=== PATIENT | male | born 1955 | race Caucasian/White ===

== ENCOUNTER 2018-05-05 08:44 | Emergency (ER) | payer OTHER, BC ==
[2018-05-05] MEDS: KETOROLAC 15 MG INJ IV (09:31)
[2018-05-05] MEDS: SOD CHLORIDE 0.9% 1,000 ML IV (09:31)
[2018-05-05 09:43] LABS: ADD MAN DIFF? NO
[2018-05-05 09:48] LABS: BASOPHILS % 0.5 % (0.0-2.0); HEMATOCRIT 42.7 % (42.0-52.0); HEMOGLOBIN 14.9 g/dl (14.0-18.0); LYMPHOCYTES # 1.5 10^3/ul (0.8-2.9); LYMPHOCYTES % 36.2 % (15.0-51.0); MEAN CORPUSCULAR HEMOGLOBIN 30.5 pg (29.0-33.0); MEAN CORPUSCULAR HGB CONC 34.9 g/dl (32.0-37.0); MEAN CORPUSCULAR VOLUME 87.5 fl (82.0-101.0); MEAN PLATELET VOLUME 9.4 fl (7.4-10.4); MONOCYTE # 0.4 10^3/ul (0.3-0.9); MONOCYTES % 10.4 % (0.0-11.0); NEUTROPHIL # 2.1 10^3/ul (1.6-7.5); NEUTROPHILS % 51.4 % (39.0-77.0); PLATELET COUNT 145 10^3/UL (140-415); RED BLOOD COUNT 4.88 10^6/ul (4.70-6.10); RED CELL DISTRIBUTION WIDTH 11.9 % (11.5-14.5)
[2018-05-05 10:04] LABS: ALANINE AMINOTRANSFERASE 28 IU/L (13-69); ALBUMIN 4.4 g/dl (3.3-4.9); ALBUMIN/GLOBULIN RATIO 1.37; ALKALINE PHOSPHATASE 85 IU/L (42-121); ANION GAP 13 (8-16); ASPARTATE AMINO TRANSFERASE 27 IU/L (15-46); BILIRUBIN,INDIRECT 0.7 mg/dl (0-1.1); BILIRUBIN,TOTAL 0.7 mg/dl (0.2-1.3); BLOOD UREA NITROGEN 15 mg/dl (7-20); CALCIUM 9.2 mg/dl (8.4-10.2); CARBON DIOXIDE 22 mmol/L (21-31); CHLORIDE 111 mmol/L (97-110); CREATININE 0.91 mg/dl (0.61-1.24); GLUCOSE 110 mg/dl (70-220); SODIUM 142 mmol/L (135-144); TOTAL PROTEIN 7.6 g/dl (6.1-8.1)
[2018-05-05] MEDS: OXYCODONE/ACETAMINOPHEN (5/325) TAB PO (10:52)
[2018-05-05] MEDS: KETOROLAC 30 MG INJ IM (12:45)
== END 2018-05-05 14:53 | disposition home or self-care (01) ==
LOC: E/R 14:53
DX: M54.5 Low back pain (principal); G89.29 Other chronic pain; E86.0 Dehydration; I10 Essential (primary) hypertension
CPT/HCPCS: 36415; 80053; 85025; 96372; 96374; 99284-25

== ENCOUNTER 2018-05-26 18:56 | Emergency (ER) | payer OTHER ==
[2018-05-26] MEDS: KETOROLAC 15 MG INJ IM ×2 (20:22→22:09)
[2018-05-26] MEDS: OXYCODONE/ACETAMINOPHEN (5/325) TAB PO (20:22)
== END 2018-05-26 22:15 | disposition home or self-care (01) ==
LOC: E/R 18:56
DX: M54.5 Low back pain (principal); I10 Essential (primary) hypertension
CPT/HCPCS: 96372; 99284-25

== ENCOUNTER 2018-06-03 02:03 | Emergency (ER) | payer OTHER ==
[2018-06-03] MEDS: KETOROLAC 15 MG INJ IM (03:01)
[2018-06-03] MEDS: oxyCODONE 5 MG TAB PO (03:16)
[2018-06-03] MEDS: KETOROLAC 15 MG INJ IV (04:11)
[2018-06-03] MEDS: predniSONE 20 MG TAB PO (04:11)
[2018-06-03 04:50] LABS: URINE BLOOD (Dip) POC 2+ (NEGATIVE); URINE GLUCOSE (Dip) POC Negative (NEGATIVE); URINE KETONES (Dip) POC Negative (NEGATIVE); URINE LEUKOCYTE EST (Dip) POC Negative (NEGATIVE); URINE NITRITE (Dip) POC Negative (NEGATIVE); URINE TOTAL PROTEIN POC Negative (NEGATIVE)
[2018-06-03 05:51] LABS: ADD UMIC YES; UR ASCORBIC ACID NEGATIVE (NEGATIVE); UR BILIRUBIN (Dip) NEGATIVE (NEGATIVE); UR BLOOD (Dip) 2+ mg/dL (NEGATIVE); UR CLARITY CLEAR (CLEAR); UR COLOR YELLOW (YELLOW); UR GLUCOSE (Dip) NEGATIVE (NEGATIVE); UR KETONES (Dip) NEGATIVE (NEGATIVE); UR LEUKOCYTE ESTERASE (Dip) NEGATIVE Leu/ul (NEGATIVE); UR MUCUS FEW /HPF (NONE SEEN); UR NITRITE (Dip) NEGATIVE (NEGATIVE); UR RBC 70 /HPF (0-5); UR SPECIFIC GRAVITY (Dip) 1.026 (1.003-1.030); UR TOTAL PROTEIN (Dip) NEGATIVE (NEGATIVE); UR UROBILINOGEN (Dip) NEGATIVE (NEGATIVE); UR WBC 2 /HPF (0-5)
[2018-06-03] MEDS ORDERED: SOD CHLORIDE 0.9% 1,000 ML IV (06:04)
== END 2018-06-03 07:30 | disposition home or self-care (01) ==
LOC: E/R 02:03
DX: M54.41 Lumbago with sciatica, right side (principal); R40.2142 Coma scale, eyes open, spontaneous, at arrival to emergency department; R40.2362 Coma scale, best motor response, obeys commands, at arrival to emergency department; R40.2252 Coma scale, best verbal response, oriented, at arrival to emergency department; G89.29 Other chronic pain; R31.9 Hematuria, unspecified; I10 Essential (primary) hypertension; Z87.442 Personal history of urinary calculi; Z86.018 Personal history of other benign neoplasm
CPT/HCPCS: 81001; 81003; 96372; 96374; 99285-25